=== PATIENT | male | born 1955 | race African-American/Black ===

== ENCOUNTER 2019-08-27 09:55 | Emergency (ER) | payer MEDICARE, OTHER ==
[~2019-08-27] VITALS: Ht 172.7 cm; Wt 105.9 kg
[~2019-08-27 09:55] MED LIST: AMLODIPINE BESYL5 MG PO; CENTRUM SILVER1 EAC3 PO; FISH OIL 1,0001 EAC2 PO; LOSARTAN-HCTZ1 EAC2 PO
--- NOTE | 2019-08-27 10:43 | Emergency Department Note ---
History of Present Illnes History of Present Illness History of Present Illness This is a 64 year old male PAIN IN MY RIGHT EAR. Historian: Patient Onset (how long ago): day(s) (5) Location: R EAR Quality: PLUGGED Radiation: Denies non-radiation, Denies back, Denies neck, Denies extremity, Denies abdomen, Denies periumbilical, Denies flank, Denies proximal, Denies distal, Denies other Severity: mild Onset quality: gradual Duration (how long): day(s) (5) Timing of current episode: constant Progression: waxing and waning Chronicity: new Context: Denies recent illness, Denies recent surgery, Denies recent immobilization, Denies recent travel, Denies trauma/injury, Denies new medications, Denies hx of DVT/PE, Denies non-compliance w/ medications, Denies other Relieving factors: none Exacerbating factors: none Associated symptoms: Reports denies other symptoms Treatments prior to arrival: none Past Medical/Family History Physician Review I have reviewed the patient's past medical and family history. Any updates have been documented here. Past Medical History Other Surgery: SHOULDER SURGERY Social History Smoking Cessation: Never Smoker Alcohol Use: None Review of Systems Review of Systems Constitutional: Reports no symptoms EENTM: Reports as per HPI Cardiovascular: Reports no symptoms Respiratory: Reports no symptoms Gastrointestinal: Reports no symptoms Genitourinary: Reports no symptoms Musculoskeletal: Reports no symptoms Integumentary: Reports no symptoms Neurological: Reports no symptoms Psychological: Reports no symptoms Endocrine: Reports no symptoms Hematological/Lymphatic: Reports no symptoms Physical Exam Related Data Allergies: Coded Allergies: No Known Allergies (Unverified , 02/15/16) Vital signs reviewed: Yes Physical Exam CONSTITUTIONAL Constitutional: Present well-developed, Present well-nourished HENT HENT: Present normocephalic, Present atraumatic, Present oropharynx clear/moist, Present nose normal HENT L/R: Present left ext ear normal, Present right impacted cerumen EYES Eyes: Reports PERRL, Reports conjunctivae normal NECK Neck: Present ROM normal PULMONARY Pulmonary: Present effort normal, Present breath sounds normal CARDIOVASCULAR Cardiovascular: Present regular rhythm, Present heart sounds normal, Present capillary refill normal, Present normal rate GASTROINTESTINAL Abdominal: Present soft, Present nontender, Present bowel sounds normal GENITOURINARY Genitourinary: Present exam deferred SKIN Skin: Present warm, Present dry MUSCULOSKELETAL Musculoskeletal: Present ROM normal NEUROLOGICAL Neurological: Present alert, Present oriented x 3, Present no gross motor or sensory deficits PSYCHOLOGICAL Psychological: Present mood/affect normal, Present judgement normal Assessment & Plan Medical Decision Making MDM CERUMEN IMPACTION Reassessment Reassessment time: 10:42 Reassessment BETTER Assessment & Plan Final Impression: (1) Otitis externa (2) Cerumen impaction Depart Disposition: HOME, SELF-retirement Meds Reported Medications Amlodipine Besylate (AMLODIPINE BESYLATE) 5 Mg Tablet, 5 MG PO DAILY, #30 TAB 02/15/16 Losartan/Hydrochlorothiazide (LOSARTAN-HCTZ 100-12.5 MG TAB) 1 Each Tablet, PO DAILY 02/15/16 Mu-Vits-Min Th/Lycopene/Lutein (CENTRUM SILVER TABLET) 1 Each Tablet, PO DAILY 02/15/16 [place]-3 Fatty Acids/Fish Oil (FISH OIL 1,000 MG CAPSULE) 1 Each Capsule, PO DAILY 02/15/16 EZEKIEL MICHAEL MD Aug 27, 2019 10:43
[2019-08-27] MEDS ORDERED: DEBROX15 ML EACH EAR (11:02)
== END 2019-08-27 11:16 | disposition home or self-care (01) ==
LOC: FSED 10:20
DX: H61.21 Impacted cerumen, right ear (principal); H60.91 Unspecified otitis externa, right ear
CPT/HCPCS: 99282

== ENCOUNTER 2020-06-29 13:06 | Emergency (ER) | payer MEDICARE ==
[~2020-06-29] VITALS: Ht 172.7 cm; Wt 101.6 kg
[~2020-06-29 13:06] MED LIST changes: +DEBROX15 ML EACH EAR
[2020-06-29] MEDS ORDERED: CYCLOBENZAPRINE5 MG PO (13:25)
[2020-06-29] MEDS ORDERED: ALTOPREV40 MG PO (13:40)
[2020-06-29] MEDS ORDERED: AVODART0.5 MG PO (13:40)
== END 2020-06-29 13:32 | disposition home or self-care (01) ==
LOC: FSED 13:25
DX: S86.812A Strain of other muscle(s) and tendon(s) at lower leg level, left leg, initial encounter (principal); Y93.02 Activity, running; I10 Essential (primary) hypertension
CPT/HCPCS: 99282

== ENCOUNTER 2020-07-09 00:53 | Emergency (ER) | payer MEDICARE ==
[~2020-07-09] VITALS: Ht 172.7 cm; Wt 103.4 kg
[~2020-07-09 00:53] MED LIST changes: +ALTOPREV40 MG PO; +AVODART0.5 MG PO; +CYCLOBENZAPRINE5 MG PO
[2020-07-09] MEDS ORDERED: ONDANSETRON HCL 4 MG ORAL DISINTEGRATING TAB PO ONE (01:45)
[2020-07-09] MEDS ORDERED: IBUPROFEN 600 MG TAB PO ONE (01:45)
[2020-07-09] MEDS ORDERED: DEXAMETHASONE 10MG/ML PF INJ IM ONE (01:45)
[2020-07-09] MEDS ORDERED: ACETAMINOPHEN 325 MG TAB PO ONE (01:45)
[2020-07-09] MEDS ORDERED: IBUPROFEN IB200 MG PO (01:47)
[2020-07-09] MEDS ORDERED: ACETAMINOPHEN500 MG PO (01:47)
[2020-07-09] MEDS ORDERED: DEXAMETHASONE SOD PHOS INJ 4 MG/ML VIAL ONE (02:24)
[2020-07-09] MEDS ORDERED: ONDANSETRON HCL 4 MG ORAL DISINTEGRATING TAB ONE (02:24)
[2020-07-09] MEDS ORDERED: IBUPROFEN 600 MG TAB ONE (02:24)
[2020-07-09] MEDS ORDERED: ACETAMINOPHEN 325 MG TAB ONE (02:25)
[2020-07-09 03:22] VITALS: BP 154/76
== END 2020-07-09 03:22 | disposition home or self-care (01) ==
LOC: FSED 01:34
DX: S76.812A Strain of other specified muscles, fascia and tendons at thigh level, left thigh, initial encounter (principal); S86.812A Strain of other muscle(s) and tendon(s) at lower leg level, left leg, initial encounter; Y93.B9 Activity, other involving muscle strengthening exercises; I10 Essential (primary) hypertension; E78.5 Hyperlipidemia, unspecified
CPT/HCPCS: 72100; 73502; 73560; 99283; J1100; Q0162

== ENCOUNTER 2022-06-29 00:37 | Observation (INO) | payer MEDICARE ==
[~2022-06-29] VITALS: Ht 172.7 cm; Wt 99.8 kg
[~2022-06-29 00:37] MED LIST changes: +ACETAMINOPHEN500 MG PO; +IBUPROFEN IB200 MG PO
[2022-06-29] MEDS ORDERED: ONDANSETRON HCL INJ 2MG/ML 2ML 2 MG/ML VIAL ONE (01:35)
[2022-06-29] MEDS ORDERED: KETOROLAC TROMETHAMINE 30 MG/ML VIAL ONE (01:35)
[2022-06-29] MEDS ORDERED: FAMOTIDINE 20 MG/2 ML VIAL IV ONE (01:36)
[2022-06-29] MEDS ORDERED: SODIUM CHLORIDE 0.9% 1000ML 1,000 ML ONE (01:36)
[2022-06-29] MEDS ORDERED: KETOROLAC TROMETHAMINE 30 MG/ML VIAL IV STA (01:48)
[2022-06-29] MEDS ORDERED: ONDANSETRON HCL INJ 2MG/ML 2ML 2 MG/ML VIAL IV STA (01:48)
[2022-06-29] MEDS ORDERED: FAMOTIDINE 20 MG/2 ML VIAL IV STA (01:48)
[2022-06-29] MEDS ORDERED: IOPAMIDOL 370 MG/ML 100 ML INFUS..BTL INJ ONE (02:00)
[2022-06-29] MEDS ORDERED: SODIUM CHLORIDE 0.9% 1000ML 1,000 ML IV ONE (02:00)
[2022-06-29] MEDS ORDERED: PIPERACILLIN/TAZOBACTAM 3.375 GM VIAL ONE (04:07)
[2022-06-29] MEDS ORDERED: ONDANSETRON HCL INJ 2MG/ML 2ML 2 MG/ML VIAL IV PRN (04:15)
[2022-06-29] MEDS ORDERED: Morphine 4mg INJECTION 4 MG/ML INJ IV PRN (04:15)
[2022-06-29] MEDS ORDERED: ACETAMINOPHEN 1000 MG/100 ML IV PRN (11:30)
[2022-06-29] MEDS ORDERED: HYDRALAZINE HCL 20 MG/ML VIAL IV PRN (11:30)
[2022-06-29] MEDS ORDERED: SUCRALFATE1 GM PO (13:03)
[2022-06-29 14:15] VITALS: BP 137/63; PULSE 62; RESP 19; TEMP 97.7; O2SAT 99
[2022-06-29 14:22] VITALS: BP 138/58; PULSE 62; RESP 19; TEMP 97.7; O2SAT 99
[2022-06-29 15:05] VITALS: BP 138/58; PULSE 62; RESP 19; TEMP 97.7; O2SAT 99
[2022-06-29] MEDS ORDERED: SODIUM CHLORIDE 0.9% 250ML 250 ML ONE (16:43)
[2022-06-29 20:00] VITALS: BP 110/59; PULSE 68; RESP 18; TEMP 97.9; O2SAT 98
[2022-06-29] MEDS ORDERED: TAMSULOSIN HCL 0.4 MG CAP PO SCH (21:00)
[2022-06-30] VITALS: BP 119/68; PULSE 61; RESP 18; TEMP 97.2; O2SAT 100
[2022-06-30 04:00] VITALS: BP 127/69; PULSE 65; RESP 18; TEMP 98.3; O2SAT 99
[2022-06-30 06:50] LABS: BASOPHILS % 0.3 % (0.0-1.0); EOSINOPHILS # (AUTO) 0.1 (0.0-0.4); EOSINOPHILS % 1.3 % (0.0-6.0); HEMATOCRIT 37.3 % (38.2-49.6); HEMOGLOBIN 11.6 g/dL (14.0-18.0); LYMPHOCYTES # (AUTO) 1.9 (1.0-3.2); LYMPHOCYTES % 28.7 % (18.0-39.1); MEAN CORPUSCULAR HEMOGLOBIN 27.7 pg (28-32); MEAN CORPUSCULAR HGB CONC 31.1 g/dL (31-35); MONOCYTES # (AUTO) 0.5 (0.2-0.8); MONOCYTES % 7.8 % (4.4-11.3); NEUTROPHILS # (AUTO) 4.2 (2.1-6.9); NEUTROPHILS % 61.6 % (38.7-80.0); PLATELET COUNT 193 x10e3/uL (140-360); RED BLOOD COUNT 4.19 x10e6/uL (4.3-5.7); RED CELL DISTRIBUTION WIDTH 14.1 % (11.7-14.4)
[2022-06-30 07:22] LABS: ANION GAP 13.4 mmol/L (8-16); CALCIUM 8.6 mg/dL (8.4-10.2); CREATININE, SERUM 0.99 mg/dL (0.72-1.25); POTASSIUM 3.4 mmol/L (3.5-5.1)
[2022-06-30 08:15] VITALS: BP 137/65; PULSE 65; RESP 19; TEMP 97.8; O2SAT 100
[2022-06-30 09:10] VITALS: BP 137/65; PULSE 65; RESP 19; TEMP 97.8; O2SAT 100
[2022-06-30] MEDS ORDERED: POTASSIUM CHLORIDE 10MEQ EA PO ONE (10:30)
[2022-06-30 12:00] VITALS: BP 120/56; PULSE 59; RESP 19; TEMP 97.6; O2SAT 100
== END 2022-06-30 13:15 | disposition home or self-care (01) ==
LOC: FSED 00:40 → ERHOLD 04:14 → INTOOBSV 04:14 → MED/SURG2 14:16
PROVIDERS: ADMIT Internal Medicine; ATTEND Internal Medicine
DX: K56.50 Intestinal adhesions [bands], unspecified as to partial versus complete obstruction (principal); I10 Essential (primary) hypertension; E78.5 Hyperlipidemia, unspecified; N40.0 Benign prostatic hyperplasia without lower urinary tract symptoms; Z20.822 Contact with and (suspected) exposure to COVID-19; Z79.1 Long term (current) use of non-steroidal anti-inflammatories (NSAID); Z79.899 Other long term (current) drug therapy; Z68.33 Body mass index [BMI] 33.0-33.9, adult; Z98.890 Other specified postprocedural states
CPT/HCPCS: 0223U; 36415 ×2; 74018; 74177; 80048; 80053; 80076; 82553; 84484; 85025 ×2; 93005; 99284; C9113 ×2; G0378 ×2; J1885; J2270; J2405; J2543 ×2; J7030; J7050; Q9967